=== PATIENT | male | born 1990 | race African-American/Black ===

== ENCOUNTER 2021-10-14 08:18 | Emergency (ER) | payer MEDICAID ==
[~2021-10-14] VITALS: Ht 182.9 cm; Wt 90.7 kg
[~2021-10-14 08:18] MED LIST: NALO4SPR NS
--- NOTE | 2021-10-14 08:34 | NUR ---
KENTRELL VALENTE Escorted by Officer Raghav [id number] "Was [place]assing [place] [address] he said he is hearing voices and want to jump off bridge". The patient is alert and oriented x3. Denies pain. In room air and denies SOB. Respiration regular and unlabored. [employer] officers at the bedside.
[2021-10-14] MEDS ORDERED: LORAZEPAM 1 MG TABLET ONE (08:37)
[2021-10-14] MEDS ORDERED: OLANZAPINE 5 MG TABLET ONE (08:38)
--- NOTE | 2021-10-14 08:48 | NUR ---
phlebatomist at the bedside
[2021-10-14] MEDS ORDERED: OLANZAPINE 5 MG TABLET PO ONE (09:00)
[2021-10-14] MEDS ORDERED: LORAZEPAM 1 MG TABLET PO ONE (09:00)
--- NOTE | 2021-10-14 09:03 | NUR ---
urine collected and sent to the lab
[2021-10-14 09:13] LABS: BASOPHILS % (AUTO) 0.4 % (0.0-2.0); EOSINOPHILS % (AUTO) 0.7 % (0.0-6.0); HEMATOCRIT 49 % (39-51); HEMOGLOBIN 16.4 g/dL (13.5-17.5); LYMPHOCYTES # (AUTO) 0.8 K/uL (0.8-4.8); LYMPHOCYTES % (AUTO) 20.5 % (20.0-44.0); MEAN CORPUSCULAR HGB CONC 34 g/dl (31.0-36.0); MEAN CORPUSCULAR VOLUME 91 fL (80-96); MONOCYTES # (AUTO) 0.3 K/uL (0.1-1.30); MONOCYTES % (AUTO) 7.7 % (2.0-12.0); NEUTROPHILS # (AUTO) 2.7 K/uL (1.8-8.9); NEUTROPHILS % (AUTO) 70.7 % (43.0-81.0); PLATELET COUNT (AUTO) 162 K/uL (150-450); RED BLOOD CELL COUNT(AUTO) 5.35 MIL/uL (4.5-6.0); WHITE BLOOD COUNT (AUTO) 3.9 K/uL (4.3-11.0)
[2021-10-14 09:17] LABS: BILIRUBIN,URINE NEGATIVE (NEGATIVE); COLOR,URINE YELLOW (YELLOW); LEUKOCYTE ESTERASE ,URINE NEGATIVE (NEGATIVE); NITRITE, URINE NEGATIVE (NEGATIVE); PROTEIN,URINE NEGATIVE (NEGATIVE); UGLUCOSE NEGATIVE (NEGATIVE); UROBILINOGEN,URINE 0.2 EU/dL (0.2)
[2021-10-14 09:25] LABS: BACTERIA,URINE None seen /HPF (None Seen); RBC,URINE NONE SEEN /HPF (0-2); SQUAMOUS EPITHELIAL CELL,UR Rare /HPF (None Seen); WBC,URINE NONE SEEN /HPF (0-3)
[2021-10-14 09:51] LABS: ALANINE AMINOTRANSFERASE 25 U/L (12-78); ALKALINE PHOSPHATASE 62 U/L (46-116); ASPARTATE AMINOTRANSFERASE 18 U/L (15-37); BILIRUBIN,DIRECT 0.2 mg/dL (0.0-0.2); BILIRUBIN,TOTAL 0.5 mg/dL (0.2-1.0); CALCIUM, SERUM 8.5 mg/dL (8.5-10.1); CARBON DIOXIDE 27 mmol/L (21-32); CHLORIDE 105 mmol/L (98-107); CREATININE 0.9 mg/dL (0.6-1.3); GLUCOSE 81 mg/dL (74-106); SODIUM SERUM 140 mmol/L (136-145); TOTAL PROTEIN, SERUM 7.4 g/dL (6.4-8.2); UREA NITROGEN, BLOOD 14 mg/dL (7-18)
[2021-10-14 10:13] LABS: ACETAMINOPHEN 0 ug/ml (10-30); ALCOHOL, BLOOD < 3 mg/dL (0-0)
--- NOTE | 2021-10-14 11:03 | NUR ---
CALLED [employer] FOR PT AND WAS NOTIFIED TO CALL HER BACK ONCE THAT COVID RESULT HAS COME BACK.
--- NOTE | 2021-10-14 11:54 | NUR ---
COVID TEST COLLECTED AND SENT
--- NOTE | 2021-10-14 15:50 | NUR ---
[facility] CALLED AND WASNOTIFIED THAT THE PT WAS ACCEPTED BED 122A NUMBER FOR REPOR [phone] THE CARE OF DR. BOBBY
--- NOTE | 2021-10-14 15:57 | NUR ---
CALLED [facility] AND SET UP S TRANSPORT TO [facility] 1800
--- NOTE | 2021-10-14 16:02 | NUR ---
REPORT GIVEN TO NURSE GAN FROM [facility]
[2021-10-14 16:28] VITALS: BP 135/72
--- NOTE | 2021-10-14 18:46 | NUR ---
The patient is alert and oriented x3. Denies pain. In room air and denies SOB. Respiration regular and unlabored. The patient is transfered to [facility] in stable condition via arranged transpo.
== END 2021-10-14 18:48 ==
LOC: ER 08:20
DX: R45.851 Suicidal ideations (principal); Z91.51 Personal history of suicidal behavior; Z59.00 Homelessness unspecified; F17.200 Nicotine dependence, unspecified, uncomplicated; Z20.822 Contact with and (suspected) exposure to COVID-19
CPT/HCPCS: 36415; 80048; 80076; 80143; 80307; 80320; 81001; 85025; 87426; 99285; C9803; G0480